=== PATIENT | female | born 1970 | race Asian ===

== ENCOUNTER 2019-11-05 20:16 | Emergency (ER) | payer OTHER ==
[~2019-11-05] VITALS: Ht 157.5 cm; Wt 65.8 kg
[2019-11-05] MEDS ORDERED: IBUPROFEN25 GM PO (20:22)
[2019-11-05] MEDS ORDERED: ADVIL200 M3 PO (20:23)
[2019-11-05 21:10] LABS: URINE BILIRUBIN NEGATIVE (Negative); URINE BLOOD NEGATIVE (Negative); URINE CLARITY SL CLOUDY; URINE COLOR YELLOW; URINE GLUCOSE-RANDOM* NEGATIVE (Negative); URINE KETONES 3+ (Negative); URINE LEUKOCYTES-REFLEX NEGATIVE (Negative); URINE NITRITE-REFLEX NEGATIVE (Negative); URINE PROTEIN (DIPSTICK) 1+ (Negative)
[2019-11-05 21:11] LABS: ABSOLUTE NEUTROPHILS 14.6 thou/uL (1.4-8.2); BASOPHILS 0.1 % (0.0-2.0); HEMATOCRIT 35.3 % (37.0-47.0); HEMOGLOBIN 11.8 gm/dL (12.0-15.0); MCH 26.9 pg (26.0-34.0); MCHC 33.6 g/dL (28.0-37.0); MCV 80.1 fL (80.0-100.0); MONOCYTES 10.2 % (1.0-8.0); PLATELET COUNT 280 thou/uL (150-400); POLYS 79.7 % (36.0-66.0); WBC 18.4 thou/uL (4.0-11.0)
[2019-11-05 21:18] LABS: ANION GAP 14 mmol/L (7-16); BUN 7 mg/dL (7-18); CALCIUM 8.5 mg/dL (8.5-10.1); CHLORIDE 98 mmol/L (98-107); CO2 23 mmol/L (21-32); CREATININE 0.6 mg/dL (0.6-1.0); GLUCOSE 152 mg/dL (74-106); POTASSIUM 3.2 mmol/L (3.5-5.1); SODIUM 135 mmol/L (136-145)
[2019-11-05 21:19] LABS: BACTERIA-REFLEX 1-9 Few /HPF (None Seen); CRYSTALS None Seen /LPF (None Seen); HYALINE CASTS 0-3 Few /LPF (None Seen); MUCUS >6 Heavy strn/LPF (None Seen); SQUAMOUS >10 Many /LPF (0-3); URINE RBC 0-2 Rare /HPF (0-2); URINE WBC-REFLEX 0-5 Rare /HPF (0-5)
[2019-11-05 21:24] LABS: ALBUMIN 3.2 g/dL (3.4-5.0); DIRECT BILIRUBIN < 0.1 mg/dL (<0.1-0.2); LIPASE 71 U/L (73-393); SGOT 14 U/L (15-37); SGPT 25 U/L (30-65); TOTAL BILIRUBIN 0.5 mg/dL (0.2-1.0)
[2019-11-05] MEDS ORDERED: ZITHROMAX500 MG PO (21:58)
[2019-11-05 22:26] VITALS: BP 124/71
== END 2019-11-05 22:30 | disposition home or self-care (01) ==
LOC: ER 20:16
PROVIDERS: Nurse Practitioner
DX: J18.9 Pneumonia, unspecified organism (principal); J02.0 Streptococcal pharyngitis; Z20.828 Contact with and (suspected) exposure to other viral communicable diseases